=== PATIENT | male | born 1980 | race Caucasian/White ===

== ENCOUNTER 2023-09-01 22:52 | Observation (INO) | payer OTHER ==
--- NOTE | 2023-09-01 23:14 | ERPHSYRPT ---
- History of Present Illness Time Seen by Provider: 09/01/23 23:09 Historian: patient, family Exam Limitations: no limitations Physician History: pt had pneumonia 2 weeks ago and finished antibiotics and now has worse CP coughing up blood. and pain is with coughing. some N no V. Abd soft nontender without peritoneal signs or masses. ext without edema or swelling. is in ER as confirming independent source for HX. discussed risks/benefits with pt and for CBC, CMP, UA, CXR, Trop BNP, D dimer, Lactate, Lipase, EKG, and they wish to proceed, These are ordered. results discussed with pt and . Timing/Duration: today, worse Quality: sharpness, stabbing Location: central, back Chest Pain Radiation: back Severity of Pain-Max: moderate Severity of Pain-Current: moderate Associated Symptoms: nausea, shortness of breath, cough Prior Chest Pain/Cardiac Workup: recently seen/treated, recent hospitalization Nitro Today/Relief: 0.4 mg x 1, provided by ED Aspirin Treatment Today: 81 mg x 4, provided by ED Allergies/Adverse Reactions: No Known Drug Allergies Allergy (Verified 09/01/23 23:27) Home Medications: Metoprolol Succinate 50 mg [Toprol Xl 50 MG] 50 mg PO DAILY 09/01/23 [History] - Review of Systems Constitutional: No Fever, No Chills Eyes: No Symptoms Ears, Nose, & Throat: No Symptoms Respiratory: Cough, Dyspnea Cardiac: Chest Pain, No Edema, No Syncope Abdominal/Gastrointestinal: Nausea, No Abdominal Pain, No Vomiting, No Diarrhea Genitourinary Symptoms: No Dysuria Musculoskeletal: Back Pain, No Neck Pain Skin: No Rash Neurological: No Dizziness, No Focal Weakness, No Sensory Changes Psychological: No Symptoms Endocrine: No Symptoms Hematologic/Lymphatic: No Symptoms Immunological/Allergic: No Symptoms All Other Systems: Reviewed and Negative - Past Medical History Neurological History: No Pertinent History Cardiac History: No Pertinent History Respiratory History: No Pertinent History Endocrine Medical History: No Pertinent History Musculoskeletal History: No Pertinent History Other Medical History: PLATE AND 7 SCREWS IN THE R UE IN 2001. - Nursing Vital Signs Nursing Vital Signs: Initial Vital Signs Temperature 100.5 F 09/01/23 22:53 Pulse Rate 117 H 09/01/23 22:53 Respiratory Rate 20 09/01/23 22:53 Blood Pressure 128/89 09/01/23 22:53 O2 Sat by Pulse Oximetry 95 09/01/23 22:53 Pain Scale Pain Intensity 10 - Physical Exam General Appearance: no apparent distress, alert Eye Exam: PERRL/EOMI, eyes nml inspection Ears, Nose, Throat Exam: normal ENT inspection, moist mucous membranes Neck Exam: normal inspection, non-tender, supple, full range of motion Respiratory Exam: normal breath sounds, lungs clear, No respiratory distress Cardiovascular Exam: regular rate/rhythm, normal heart sounds Gastrointestinal/Abdomen Exam: soft, No tenderness, No mass Back Exam: normal inspection, No CVA tenderness, No vertebral tenderness Extremity Exam: normal inspection, normal range of motion Neurologic Exam: alert, oriented x 3, cooperative, normal mood/affect, sensation nml, No motor deficits Skin Exam: normal color, warm, dry SpO2 Interpretation: normal O2 Delivery: Room Air - Course Nursing assessment & vital signs reviewed: Yes EKG Interpreted by Me: Sinus Rhythm, Sinus Tach, NORMAL AXIS, NORMAL INTERVALS, NORMAL QRS, Non-specific ST Changes - Radiology Exams Chest X-ray Interpretation: Reviewed by me, Infiltrates, Pneumonia - CT Exams Chest CT Interpretation: Tele-radiologist Report, Other (bilateral PE and infarcts) Ordered Tests: Active Orders 24 hr Category Date Time Status Data Entry Coordinator STAT Care 09/01/23 23:15 Active EKG-ER Only STAT Care 09/01/23 23:14 Active IV Insertion STAT Care 09/01/23 23:14 Active Pulse Oximetry (ED) STAT Care 09/01/23 23:14 Active CHEST 1 VIEW (PORTABLE) Stat Exams 09/01/23 23:15 Taken CHEST WITH CONTRAST [CT] Stat Exams 09/02/23 00:51 Completed AMYLASE Stat Lab 09/01/23 23:29 Completed CBC W DIFF Stat Lab 09/01/23 23:29 Completed CMP Stat Lab 09/01/23 23:29 Completed D-DIMER QUANTITATIVE Stat Lab 09/01/23 23:29 Completed LIPASE Stat Lab 09/01/23 23:29 Completed Lactic Acid Stat Lab 09/01/23 23:40 Completed NT PRO BNPII Stat Lab 09/01/23 23:29 Completed TROPONIN Q4H Lab 09/01/23 23:29 Completed TROPONIN Q4H Lab 09/02/23 03:15 Ordered TROPONIN Q4H Lab 09/02/23 07:15 Ordered Medication Summary Generic Name Dose Route Start Last Admin Trade Name Scott PRN Reason Stop Dose Admin Sodium Chloride 1,000 mls @ 100 mls/hr 09/01/23 23:15 09/01/23 23:41 Sodium Chloride 0.9% 1000 Ml IV 10/01/23 23:14 100 mls/hr .Q10H RACHEL Administration Discontinued Medications Generic Name Dose Route Start Last Admin Trade Name Scott PRN Reason Stop Dose Admin Aspirin 324 mg 09/01/23 23:14 09/01/23 23:40 Aspirin 81 Mg Tab.Chew PO 09/01/23 23:15 324 mg STAT ONE Administration Aspirin Confirm 09/01/23 23:33 Aspirin 81 Mg Tab.Chew Administered 09/01/23 23:34 Dose 324 mg .ROUTE .STK-MED ONE Nitroglycerin 0.4 mg 09/01/23 23:14 09/01/23 23:39 Nitroglycerin 0.4 Mg (Ed) 0.4 Mg Tab.Subl SL 09/01/23 23:15 0.4 mg STAT ONE Administration Nitroglycerin Confirm 09/01/23 23:33 Nitroglycerin 0.4 Mg (Ed) 0.4 Mg Tab.Subl Administered 09/01/23 23:34 Dose 0.4 mg SL .STK-MED ONE Lab/Rad Data: Laboratory Result Diagrams 09/01/23 23:29 09/01/23 23:29 Laboratory Results 09/01/23 09/01/23 09/01/23 Range/Units 23:40 23:29 23:29 WBC (4.0-10.5) x10^3/uL RBC (4.1-5.6) x10^6/uL Hgb (12.5-18.0) g/dL Hct (42-50) % MCV (78-100) fL MCH (26-32) pg MCHC (32-36) g/dL RDW (11.5-14.0) % Plt Count (150-450) x10^3/uL MPV (7.5-11.0) fL Gran % (36.0-66.0) % Immature Gran % (Auto) (0.00-0.4) % Nucleat RBC Rel Count (0.00-0.1) % Eos # (Auto) (0-0.5) x10^3/uL Immature Gran # (Auto) (0.00-0.03) x10^3u/L Absolute Lymphs (auto) (1.0-4.6) x10^3/uL Absolute Monos (auto) (0.0-1.3) x10^3/uL Absolute Nucleated RBC (0.00-0.01) x10^3u/L Lymphocytes % (24.0-44.0) % Monocytes % (0.0-12.0) % Eosinophils % (0.00-5.0) % Basophils % (0.0-0.4) % Absolute Granulocytes (1.4-6.9) x10^3/uL Basophils # (0-0.4) x10^3/uL D-Dimer 1.70 H* (0.0-0.50) mg/L Sodium (135-145) mmol/L Potassium (3.5-5.1) mmol/L Chloride (98-107) mmol/L Carbon Dioxide (22-30) mmol/L Anion Gap (5-15) MEQ/L BUN (9-20) mg/dL Creatinine (0.66-1.25) mg/dL Estimated GFR ML/MIN Glucose (74-106) mg/dL Lactic Acid 1.3 (0.4-2.0) Calcium (8.4-10.2) mg/dL Total Bilirubin (0.2-1.3) mg/dL AST (17-59) U/L ALT (0-50) U/L Alkaline Phosphatase (38-126) U/L Troponin I < 0.012 (0.000-0.034) ng/mL NT-Pro-B Natriuret Pep 116 (<300) pg/mL Serum Total Protein (6.3-8.2) g/dL Albumin (3.5-5.0) g/dL Amylase (30-110) U/L Lipase (23-300) U/L 09/01/23 09/01/23 Range/Units 23:29 23:29 WBC 10.5 (4.0-10.5) x10^3/uL RBC 5.80 H (4.1-5.6) x10^6/uL Hgb 14.5 (12.5-18.0) g/dL Hct 47.4 (42-50) % MCV 81.7 (78-100) fL MCH 25.0 L (26-32) pg MCHC 30.6 L (32-36) g/dL RDW 21.0 H (11.5-14.0) % Plt Count 271 (150-450) x10^3/uL MPV 10.2 (7.5-11.0) fL Gran % 76.0 H (36.0-66.0) % Immature Gran % (Auto) 0.4 (0.00-0.4) % Nucleat RBC Rel Count 0.0 (0.00-0.1) % Eos # (Auto) 0.18 (0-0.5) x10^3/uL Immature Gran # (Auto) 0.04 H (0.00-0.03) x10^3u/L Absolute Lymphs (auto) 1.38 (1.0-4.6) x10^3/uL Absolute Monos (auto) 0.86 (0.0-1.3) x10^3/uL Absolute Nucleated RBC 0.00 (0.00-0.01) x10^3u/L Lymphocytes % 13.1 L (24.0-44.0) % Monocytes % 8.2 (0.0-12.0) % Eosinophils % 1.7 (0.00-5.0) % Basophils % 0.6 (0.0-0.4) % Absolute Granulocytes 8.02 H (1.4-6.9) x10^3/uL Basophils # 0.06 (0-0.4) x10^3/uL D-Dimer (0.0-0.50) mg/L Sodium 136 (135-145) mmol/L Potassium 4.2 (3.5-5.1) mmol/L Chloride 100 (98-107) mmol/L Carbon Dioxide 28 (22-30) mmol/L Anion Gap 12.9 (5-15) MEQ/L BUN 5 L (9-20) mg/dL Creatinine 0.53 L (0.66-1.25) mg/dL Estimated GFR 127.5 ML/MIN Glucose 94 (74-106) mg/dL Lactic Acid (0.4-2.0) Calcium 9.1 (8.4-10.2) mg/dL Total Bilirubin 1.00 (0.2-1.3) mg/dL AST 17 (17-59) U/L ALT 10 (0-50) U/L Alkaline Phosphatase 133 H (38-126) U/L Troponin I (0.000-0.034) ng/mL NT-Pro-B Natriuret Pep (<300) pg/mL Serum Total Protein 7.4 (6.3-8.2) g/dL Albumin 4.0 (3.5-5.0) g/dL Amylase 61 (30-110) U/L Lipase 47 (23-300) U/L - Progress Progress: improved, re-examined Air Movement: good Progress Note: 09/02/23 00:49 discussed risks/benefits of CT PE protocol with pt and and they wish to proceed - this is ordered. Results discussed with pt and . Discussed pain med with pt and and they decline for the moment. 09/02/23 02:19 discussed with family , pt and Dr. quinn hospitalist in consultation and all agree best for pt to come in and begin his AC for Tx PEs. Blood Culture(s) Obtained: No Antibiotics given: No Discussed with Dr.: Other (Dr. Lily Quinn) Will see patient in: hospital (observation) Counseled pt/family regarding: lab results, diagnosis, need for follow-up, rad results Medical Desision Making - Independent Historian Additional History obtained from: Spouse - Discussion of managment Care discussed with:: hospitalist Reviewed:: Test results, Need for additional workup Agreed on:: Treatment plan, need for follow-up, decision to admit - Diagnostic Testing Diagnostic test were ordered, analyzed, and reviewed by me: Yes Radiological Interpretation: Reviewed by me - Risk of complications The pt has a mod risk of morbidity or mortality based on: Need for prescription drug management The pt has a high risk of morbidity or mortality based on: Decision regarding hospitilization or escalation of hosp level of care - Departure Departure Disposition: Observation Clinical Impression: bilateral pulmonary embolisms and infarc Condition: Good Critical Care Time: No Referrals: JEANINE COOK, GLASS EDGER [Primary Care Provider] - Follow up/PCP as directed
[2023-09-01 23:32] LABS: Absolute Neutrophil Ct (ANC) 8.02 x10^3/uL (1.4-6.9); BASOPHIL % 0.6 % (0.0-0.4); Basophil (Absolute #) 0.06 x10^3/uL (0-0.4); Eosinophil % 1.7 % (0.00-5.0); Eosinophil (Absolute #) 0.18 x10^3/uL (0-0.5); Hematocrit 47.4 % (42-50); Hemoglobin 14.5 g/dL (12.5-18.0); IMMATURE GRAN # 0.04 x10^3u/L (0.00-0.03); IMMATURE GRAN % 0.4 % (0.00-0.4); Lymphocyte (Absolute #) 1.38 x10^3/uL (1.0-4.6); Lymphocytes % 13.1 % (24.0-44.0); Mean Cell Volume 81.7 fL (78-100); Mean Corpuscular Hgb Concent. 30.6 g/dL (32-36); Mean Platelet Volume 10.2 fL (7.5-11.0); Monocyte (Absolute #) 0.86 x10^3/uL (0.0-1.3); Monocytes % 8.2 % (0.0-12.0); Platelet Count 271 x10^3/uL (150-450); White Blood Count 10.5 x10^3/uL (4.0-10.5)
[2023-09-01] MEDS ORDERED: Nitrostat 0.4 MG (ED) SL ONE (23:33)
[2023-09-01] MEDS ORDERED: BABY ASPIRIN 81 MG CHEW ONE (23:33)
[2023-09-01] MEDS: Nitrostat 0.4 MG (ED) SL ONE (23:39)
[2023-09-01] MEDS: BABY ASPIRIN 81 MG CHEW PO ONE (23:40)
[2023-09-01] MEDS: Sodium Chloride 0.9% 1000 ML 1,000 ML IV SCH (23:41)
[2023-09-01 23:50] LABS: ANION GAP 12.9 MEQ/L (5-15); Calcium 9.1 mg/dL (8.4-10.2); Creatinine 1 0.53 mg/dL (0.66-1.25); EST GLOMERULAR FILTRATION RATE 127.5 ML/MIN; Potassium 4.2 mmol/L (3.5-5.1); Total Protein 7.4 g/dL (6.3-8.2)
[2023-09-02 00:02] LABS: NT PRO BNPII 116 pg/mL (<300); TROPONIN < 0.012 ng/mL (0.000-0.034)
--- NOTE | 2023-09-02 02:05 | XRAY ---
CLINICAL HISTORY: Elevated D dimer CP TECHNIQUE: Contiguous axial CT images of the chest were acquired in arterial phase following administration of 80 cc Isovue-370 intravenous contrast. Coronal and sagittal reconstructions were also obtained. COMPARISON: None. FINDINGS: Suboptimal study with simultaneous opacification of the pulmonary veins due to slightly delayed acquisition. There are large intraluminal filling defects appreciated in the bilateral lower lobe lobar and segmental pulmonary arterial branches. Bilateral lower lobe patchy peripheral consolidative changes with a roughly wedge-shaped configuration, likely represent bilateral pulmonary infarcts (right>left). Minimal bilateral pleural effusion is also present. Normal caliber thoracic aorta without any significant abnormality. No evidence of aortic root dilatation. No pneumothorax. No inter-lobular septal thickening. No bronchiectatic changes or honeycombing. Visualzied thyroid appears unremarkable. Few borderline enlarged mediastinal lymph nodes are likely reactive. No size significant supraclavicular or axillary lymphadenopathy. Trachea is central and patent. No endobronchial lesion is identified. Normal cardiac size. No pericardial effusion. Visualized sections through the upper abdomen do not show any gross visceral abnormality. Mild degenerative changes are seen in the spine. IMPRESSION: Acute pulmonary embolism in the bilateral lower lobe lobar and segmental pulmonary arterial branches, with bilateral pulmonary infarcts and minimal bilateral pleural effusion. [facility] ER was called at [phone] at 12:56 AM [employer]RB[employer]EWAL MANAGER, 09/02/2023 and Mono Goodman was informed regarding Critical Findings. Electronically Signed by: Chary Altamirano MD. (09/02/2023 02:01:07 EDT)
[2023-09-02 02:19] LABS: INFLUENZA A NEGATIVE (NEGATIVE); INFLUENZA B NEGATIVE (NEGATIVE); RESPIRATORY SYNCTIAL VIRUS NEGATIVE (NEGATIVE); SARS-CoV-2 Xpert Express NEGATIVE (NEGATIVE)
--- NOTE | 2023-09-02 03:48 | PCM.HP ---
History of Present Illness - Chief Complaint Chief Complaint: Acute PE History of Present Illness: is a 43 year old male with HTN and polycythemia presesnts with left sided chest pain and found to have acute pulmonary embolism in the bilateral lower lobe lobar and segmental pulmonary arterial branches, with bilateral pulmonary infarcts and minimal bilateral pleural effusion. Patient reports no prior blood clots. Last phlembotomy was about 2 months ago; and cause of polycy themia per patient was unknown. Denies any OTC medications, recent travel. Reports some blood tinged sputum with excessive coughing but reports no other bleeding. - Review of Systems Constitutional: No Fever, No Chills Eyes: No Symptoms Ears, Nose, & Throat: No Symptoms Respiratory: No Cough, No Short Of Breath Cardiac: No Chest Pain, No Edema, No Syncope Abdominal/Gastrointestinal: No Abdominal Pain, No Nausea, No Vomiting, No Diarrhea Genitourinary Symptoms: No Dysuria Musculoskeletal: No Back Pain, No Neck Pain Skin: No Rash Neurological: No Dizziness, No Focal Weakness, No Sensory Changes Psychological: No Symptoms Endocrine: No Symptoms Hematologic/Lymphatic: No Symptoms Immunological/Allergic: No Symptoms Medications & Allergies Home Medications: Home Medication List Metoprolol Succinate 50 mg [Toprol Xl 50 MG] 50 mg PO DAILY 09/01/23 [History Confirmed 09/01/23] Omeprazole 20 mg PO DAILY PRN PRN 09/02/23 [History Confirmed 09/02/23] Allergies/Adverse Reactions: Allergies Allergy/AdvReac Type Severity Reaction Status Date / Time No Known Drug Allergies Allergy Verified 09/01/23 23:27 - Past Medical History Neurological History: No Pertinent History Cardiac History: No Pertinent History Respiratory History: No Pertinent History Endocrine Medical History: No Pertinent History Musculoskelatal History: No Pertinent History Comment: PLATE AND 7 SCREWS IN THE R UE IN 2001. - Past Surgical History Past Surgical History: Yes Other Surgical History: lower back surgery - Social History Smoking Status: Current every day smoker How long have you smoked: 25 yrs Exposure to second hand smoke: No Alcohol: None Drug Use: none - Physical Exam Vital Signs: Vital Signs - 24 hr Temp Pulse Pulse Resp BP BP Pulse Ox 09/02/23 02:30 98 H 35 H 115/73 95 09/02/23 02:00 99 H 24 112/74 96 09/02/23 01:30 101 H 12 126/77 93 L 09/02/23 01:17 99 H 20 114/75 96 09/02/23 01:00 99 H 20 110/65 96 09/02/23 00:30 102 H 25 H 117/74 94 L 09/02/23 00:00 111 H 39 H 112/78 94 L 09/01/23 23:43 111 H 39 H 119/76 96 09/01/23 23:30 117 H 32 H 122/87 94 L 09/01/23 23:14 95 09/01/23 22:53 100.5 F 117 H 116 H 20 128/89 95 General Appearance: no apparent distress, alert Neurologic Exam: alert, oriented x 3, cooperative, normal mood/affect, nml cerebellar function, nml station & gait, sensation nml, No motor deficits Eye Exam: PERRL/EOMI, eyes nml inspection Ears, Nose, Throat Exam: normal ENT inspection, TMs normal, pharynx normal, moist mucous membranes Neck Exam: normal inspection, non-tender, supple, full range of motion Respiratory Exam: normal breath sounds, lungs clear, No respiratory distress Cardiovascular Exam: regular rate/rhythm, normal heart sounds, normal peripheral pulses Gastrointestinal/Abdomen Exam: soft, normal bowel sounds, No tenderness, No mass Back Exam: normal inspection, normal range of motion, No CVA tenderness, No vertebral tenderness Extremity Exam: normal inspection, normal range of motion, pelvis stable Skin Exam: normal color, warm, dry, No rash Lymphatic Exam: No adenopathy Results - Labs Lab/Micro Results: Lab Results-Last 24 Hours 09/01/23 09/01/23 09/01/23 Range/Units 23:29 23:29 23:29 WBC 10.5 (4.0-10.5) x10^3/uL RBC 5.80 H (4.1-5.6) x10^6/uL Hgb 14.5 (12.5-18.0) g/dL Hct 47.4 (42-50) % MCV 81.7 (78-100) fL MCH 25.0 L (26-32) pg MCHC 30.6 L (32-36) g/dL RDW 21.0 H (11.5-14.0) % Plt Count 271 (150-450) x10^3/uL MPV 10.2 (7.5-11.0) fL Gran % 76.0 H (36.0-66.0) % Immature Gran % (Auto) 0.4 (0.00-0.4) % Nucleat RBC Rel Count 0.0 (0.00-0.1) % Eos # (Auto) 0.18 (0-0.5) x10^3/uL Immature Gran # (Auto) 0.04 H (0.00-0.03) x10^3u/L Absolute Lymphs (auto) 1.38 (1.0-4.6) x10^3/uL Absolute Monos (auto) 0.86 (0.0-1.3) x10^3/uL Absolute Nucleated RBC 0.00 (0.00-0.01) x10^3u/L Lymphocytes % 13.1 L (24.0-44.0) % Monocytes % 8.2 (0.0-12.0) % Eosinophils % 1.7 (0.00-5.0) % Basophils % 0.6 (0.0-0.4) % Absolute Granulocytes 8.02 H (1.4-6.9) x10^3/uL Basophils # 0.06 (0-0.4) x10^3/uL D-Dimer 1.70 H* (0.0-0.50) mg/L Sodium 136 (135-145) mmol/L Potassium 4.2 (3.5-5.1) mmol/L Chloride 100 (98-107) mmol/L Carbon Dioxide 28 (22-30) mmol/L Anion Gap 12.9 (5-15) MEQ/L BUN 5 L (9-20) mg/dL Creatinine 0.53 L (0.66-1.25) mg/dL Estimated GFR 127.5 ML/MIN Glucose 94 (74-106) mg/dL Lactic Acid (0.4-2.0) Calcium 9.1 (8.4-10.2) mg/dL Total Bilirubin 1.00 (0.2-1.3) mg/dL AST 17 (17-59) U/L ALT 10 (0-50) U/L Alkaline Phosphatase 133 H (38-126) U/L Troponin I (0.000-0.034) ng/mL NT-Pro-B Natriuret Pep (<300) pg/mL Serum Total Protein 7.4 (6.3-8.2) g/dL Albumin 4.0 (3.5-5.0) g/dL Amylase 61 (30-110) U/L Lipase 47 (23-300) U/L Influenza Type A Ag (NEGATIVE) Influenza Type B Ag (NEGATIVE) RSV (PCR) (NEGATIVE) SARS-CoV-2 (PCR) (NEGATIVE) 09/01/23 09/01/23 09/02/23 Range/Units 23:29 23:40 01:37 WBC (4.0-10.5) x10^3/uL RBC (4.1-5.6) x10^6/uL Hgb (12.5-18.0) g/dL Hct (42-50) % MCV (78-100) fL MCH (26-32) pg MCHC (32-36) g/dL RDW (11.5-14.0) % Plt Count (150-450) x10^3/uL MPV (7.5-11.0) fL Gran % (36.0-66.0) % Immature Gran % (Auto) (0.00-0.4) % Nucleat RBC Rel Count (0.00-0.1) % Eos # (Auto) (0-0.5) x10^3/uL Immature Gran # (Auto) (0.00-0.03) x10^3u/L Absolute Lymphs (auto) (1.0-4.6) x10^3/uL Absolute Monos (auto) (0.0-1.3) x10^3/uL Absolute Nucleated RBC (0.00-0.01) x10^3u/L Lymphocytes % (24.0-44.0) % Monocytes % (0.0-12.0) % Eosinophils % (0.00-5.0) % Basophils % (0.0-0.4) % Absolute Granulocytes (1.4-6.9) x10^3/uL Basophils # (0-0.4) x10^3/uL D-Dimer (0.0-0.50) mg/L Sodium (135-145) mmol/L Potassium (3.5-5.1) mmol/L Chloride (98-107) mmol/L Carbon Dioxide (22-30) mmol/L Anion Gap (5-15) MEQ/L BUN (9-20) mg/dL Creatinine (0.66-1.25) mg/dL Estimated GFR ML/MIN Glucose (74-106) mg/dL Lactic Acid 1.3 (0.4-2.0) Calcium (8.4-10.2) mg/dL Total Bilirubin (0.2-1.3) mg/dL AST (17-59) U/L ALT (0-50) U/L Alkaline Phosphatase (38-126) U/L Troponin I < 0.012 (0.000-0.034) ng/mL NT-Pro-B Natriuret Pep 116 (<300) pg/mL Serum Total Protein (6.3-8.2) g/dL Albumin (3.5-5.0) g/dL Amylase (30-110) U/L Lipase (23-300) U/L Influenza Type A Ag NEGATIVE (NEGATIVE) Influenza Type B Ag NEGATIVE (NEGATIVE) RSV (PCR) NEGATIVE (NEGATIVE) SARS-CoV-2 (PCR) NEGATIVE (NEGATIVE) 09/02/23 Range/Units 03:11 WBC (4.0-10.5) x10^3/uL RBC (4.1-5.6) x10^6/uL Hgb (12.5-18.0) g/dL Hct (42-50) % MCV (78-100) fL MCH (26-32) pg MCHC (32-36) g/dL RDW (11.5-14.0) % Plt Count (150-450) x10^3/uL MPV (7.5-11.0) fL Gran % (36.0-66.0) % Immature Gran % (Auto) (0.00-0.4) % Nucleat RBC Rel Count (0.00-0.1) % Eos # (Auto) (0-0.5) x10^3/uL Immature Gran # (Auto) (0.00-0.03) x10^3u/L Absolute Lymphs (auto) (1.0-4.6) x10^3/uL Absolute Monos (auto) (0.0-1.3) x10^3/uL Absolute Nucleated RBC (0.00-0.01) x10^3u/L Lymphocytes % (24.0-44.0) % Monocytes % (0.0-12.0) % Eosinophils % (0.00-5.0) % Basophils % (0.0-0.4) % Absolute Granulocytes (1.4-6.9) x10^3/uL Basophils # (0-0.4) x10^3/uL D-Dimer (0.0-0.50) mg/L Sodium (135-145) mmol/L Potassium (3.5-5.1) mmol/L Chloride (98-107) mmol/L Carbon Dioxide (22-30) mmol/L Anion Gap (5-15) MEQ/L BUN (9-20) mg/dL Creatinine (0.66-1.25) mg/dL Estimated GFR ML/MIN Glucose (74-106) mg/dL Lactic Acid (0.4-2.0) Calcium (8.4-10.2) mg/dL Total Bilirubin (0.2-1.3) mg/dL AST (17-59) U/L ALT (0-50) U/L Alkaline Phosphatase (38-126) U/L Troponin I < 0.012 (0.000-0.034) ng/mL NT-Pro-B Natriuret Pep (<300) pg/mL Serum Total Protein (6.3-8.2) g/dL Albumin (3.5-5.0) g/dL Amylase (30-110) U/L Lipase (23-300) U/L Influenza Type A Ag (NEGATIVE) Influenza Type B Ag (NEGATIVE) RSV (PCR) (NEGATIVE) SARS-CoV-2 (PCR) (NEGATIVE) - Radiology Impressions Radiology Exams & Impressions: Radiology Procedures Category Date Time Status CHEST 1 VIEW (PORTABLE) Stat Exams 09/01/23 23:15 Taken CHEST WITH CONTRAST [CT] Stat Exams 09/02/23 00:51 Completed - Other Procedures and Tests Respiratory Therapy 09/02/23 02:29 Respiratory Therapy Consult ONCE Assessment/Plan (1) Acute pulmonary embolism Current Visit: Yes Status: Acute Assessment & Plan: 1. With a history of polycythemia, could be the culprit 2. Treat with Lovenox tonight and switch to PO tomorrow for anticipated discharge 3. Sees a geographic information systems analyst as an outpatient - informed patient to call the office for follow up post discharge Code(s): I26.99 - OTHER PULMONARY EMBOLISM WITHOUT ACUTE COR PULMONALE Telemedicine Encounter - Telemedicine Encounter Telemedicine Encounter: The entirety of this encounter was performed via Telemedicine"
[2023-09-02] MEDS: ENOXAPARIN SODIUM SQ SCH (03:59)
[2023-09-02] MEDS: TYLENOL 325 MG PO PRN (03:59)
[2023-09-02 05:55] LABS: Absolute Neutrophil Ct (ANC) 7.24 x10^3/uL (1.4-6.9); BASOPHIL % 0.6 % (0.0-0.4); Basophil (Absolute #) 0.06 x10^3/uL (0-0.4); Eosinophil % 1.2 % (0.00-5.0); Eosinophil (Absolute #) 0.13 x10^3/uL (0-0.5); Hematocrit 45.7 % (42-50); Hemoglobin 13.7 g/dL (12.5-18.0); IMMATURE GRAN # 0.03 x10^3u/L (0.00-0.03); IMMATURE GRAN % 0.3 % (0.00-0.4); Lymphocyte (Absolute #) 2.19 x10^3/uL (1.0-4.6); Lymphocytes % 20.9 % (24.0-44.0); Mean Cell Volume 82.8 fL (78-100); Mean Corpuscular Hemoglobin 24.8 pg (26-32); Mean Platelet Volume 10.2 fL (7.5-11.0); Monocyte (Absolute #) 0.85 x10^3/uL (0.0-1.3); Monocytes % 8.1 % (0.0-12.0); Neutrophil % 68.9 % (36.0-66.0); Platelet Count 245 x10^3/uL (150-450); Red Blood Count 5.52 x10^6/uL (4.1-5.6); Red Cell Distribution Width 21.1 % (11.5-14.0); White Blood Count 10.5 x10^3/uL (4.0-10.5)
[2023-09-02 06:02] LABS: ALBUMIN 3.5 g/dL (3.5-5.0); ANION GAP 10.8 MEQ/L (5-15); Calcium 8.7 mg/dL (8.4-10.2); Creatinine 1 0.56 mg/dL (0.66-1.25); EST GLOMERULAR FILTRATION RATE 125.4 ML/MIN
--- NOTE | 2023-09-02 08:46 | XRAY ---
Indication: Pneumonia. Chest pain. Comparison: June 21, 2008 Portable chest demonstrates new mild diffuse bibasilar patchy airspace disease with tiny left effusion. Remaining heart and bony thorax are unremarkable.
[2023-09-02] MEDS: Toprol Xl 50 MG PO SCH (09:21)
[2023-09-02] MEDS: NORCO 5/325 MG PO PRN (09:21)
--- NOTE | 2023-09-02 15:39 | ECHO ---
Transthoracic echocardiographic examination and color Doppler was done on 09/02/2023. INDICATION: Shortness of breath. IMPRESSION: 1) NO REGIONAL WALL MOTION ABNORMALITY. ESTIMATED GLOBAL LEFT VENTRICULAR EJECTION FRACTION BETWEEN 55 TO 60%. 2) TRACE TRICUSPID REGURGITATION, RIGHT VENTRICULAR SYSTOLIC PRESSURE OF 27 MM OF MERCURY. The left ventricle is visualized and demonstrated adequate motion of all the segments. Estimated global left ventricular ejection fraction between 55 to 60%. The left ventricular thickness is normal. The mitral valve is seen and this opens adequately. No significant mitral regurgitation is seen. Left atrium is normal. The aortic valve opens adequately. There is no significant gradient across the left ventricular outflow tract. The right side chambers are within normal with normal right ventricular contractility. There is trace tricuspid regurgitation. The right ventricular systolic pressure of 27 mm of Mercury.
[2023-09-02] MEDS ORDERED: ENOXAPARIN SODIUM SQ SCH (18:00)
[2023-09-02] MEDS: Nicoderm CQ 21 MG TOP SCH (19:33)
[2023-09-02] MEDS: ELIQUIS 2.5 MG TABLET PO SCH (21:38)
[2023-09-03 04:57] LABS: Absolute Neutrophil Ct (ANC) 8.99 x10^3/uL (1.4-6.9); BASOPHIL % 0.3 % (0.0-0.4); Basophil (Absolute #) 0.04 x10^3/uL (0-0.4); Eosinophil % 1.1 % (0.00-5.0); Eosinophil (Absolute #) 0.13 x10^3/uL (0-0.5); Hematocrit 43.7 % (42-50); Hemoglobin 12.9 g/dL (12.5-18.0); IMMATURE GRAN # 0.05 x10^3u/L (0.00-0.03); IMMATURE GRAN % 0.4 % (0.00-0.4); Lymphocyte (Absolute #) 1.86 x10^3/uL (1.0-4.6); Lymphocytes % 15.4 % (24.0-44.0); Mean Cell Volume 82.9 fL (78-100); Mean Corpuscular Hemoglobin 24.5 pg (26-32); Mean Corpuscular Hgb Concent. 29.5 g/dL (32-36); Mean Platelet Volume 9.7 fL (7.5-11.0); Monocyte (Absolute #) 0.99 x10^3/uL (0.0-1.3); Monocytes % 8.2 % (0.0-12.0); Neutrophil % 74.6 % (36.0-66.0); Platelet Count 239 x10^3/uL (150-450); Red Blood Count 5.27 x10^6/uL (4.1-5.6); Red Cell Distribution Width 21.2 % (11.5-14.0); White Blood Count 12.1 x10^3/uL (4.0-10.5)
[2023-09-03 05:22] LABS: ANION GAP 9.7 MEQ/L (5-15); Calcium 8.3 mg/dL (8.4-10.2); Creatinine 1 0.56 mg/dL (0.66-1.25); EST GLOMERULAR FILTRATION RATE 125.4 ML/MIN; Potassium 3.8 mmol/L (3.5-5.1); Total Protein 6.3 g/dL (6.3-8.2)
--- NOTE | 2023-09-03 05:37 | PCM.DS ---
Discharge Summary Date of Admission: 09/02/23 02:25 Date of Discharge: 09/03/23 Admitting Physician: SHERINE HATCH MD Primary Care Provider: JEANINE COOK <JUSTIN KAY - Last Filed: 09/03/23 11:39> Date of Admission: 09/02/23 02:25 Admitting Physician: SHERINE HATCH MD Primary Care Provider: JEANINE COOK <TIKA SUMMERS - Last Filed: 09/03/23 22:30> Allergies <JUSTIN KAY - Last Filed: 09/03/23 11:39> <TIKA SUMMERS - Last Filed: 09/03/23 22:30> Allergies No Known Drug Allergies Allergy (Verified 09/02/23 03:48) Hospital Summary - Hospital Course Hospital Course: Rosie Serrano is a 43 year old male with a pmhx of HTN, polycythemia (with therapeutic phlebotomies), and pneumonia 2 weeks ago (antibiotic regimen completed), presented to ED3 with left sided chest pain and hemoptysis. Ddimer elevated at 1.70. CT imaging of the Chest with PE protocol demonstrates Acute pulmonary embolism in the bilateral lower lobe lobar and segmental pulmonary arterial branches, with bilateral pulmonary infarcts and minimal bilateral pleural effusion. Patient admitted with PE, therapeutic Lovenox initiated and later converted to Eliquis 10mg bid dosing x 1 week, then 5mg bid dosing thereafter. Spoke with Dr. Thomas, patient's PCV is secondary to smoking, Jak2 negative. He has requested CT abd/pelvis, patient states that he has had recent MRI of the abdomen at [facility] 2 weeks ago which noted a renal cyst as well as a pancreatic cyst. Patient has an appointment with Dr. Baudilio Russo for further evaluation. Discharge Note New Diagnosis: PE New Medications: Eliquis Follow Up: Hematology (sees Dr. Thomas)/PCP Latest Assessment & Plan (1) Acute pulmonary embolism Current Visit: Yes Status: Acute Assessment & Plan: 1. With a history of polycythemia, could be the culprit 2. Treat with Lovenox tonight and switch to PO tomorrow for anticipated discharge 3. 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 Thomas with therapeutic phlebotomies every 3 months or so -FCO 2 negative -seconday to smoking (3) HTN -Stable, home meds continued (4) smoker -Advised cessation, patient declines at this time. I spent 35 minutes [id number] with the patient on the day of discharge performing discharge exam, discussing hospital stay and discharge instructions with patient and caregivers, preparation of discharge records, prescriptions & referral forms and addressing any questions/concerns the patient had as doc umented above. - Vitals & Intake/Output Vital Signs: Vital Signs Temperature 97.3 F 09/03/23 04:00 Pulse Rate 92 H 09/03/23 04:00 Respiratory Rate 16 09/03/23 04:00 Blood Pressure 99/55 09/03/23 04:00 O2 Sat by Pulse Oximetry 99 09/03/23 04:00 Intake & Output: Intake & Output 08/31/23 09/01/23 09/02/23 09/03/23 11:59 11:59 11:59 11:59 Intake Total 120 1702 Balance 120 1702 Weight 82.7 kg - Lab Result Diagrams: 09/03/23 04:28 09/03/23 04:28 Lab Results-Last 24 Hrs: Lab Results-Last 24 Hours 09/02/23 09/02/23 09/03/23 Range/Units 03:11 03:11 04:28 WBC 10.5 12.1 H (4.0-10.5) x10^3/uL RBC 5.52 5.27 (4.1-5.6) x10^6/uL Hgb 13.7 12.9 (12.5-18.0) g/dL Hct 45.7 43.7 (42-50) % MCV 82.8 82.9 (78-100) fL MCH 24.8 L 24.5 L (26-32) pg MCHC 30.0 L 29.5 L (32-36) g/dL RDW 21.1 H 21.2 H (11.5-14.0) % Plt Count 245 239 (150-450) x10^3/uL MPV 10.2 9.7 (7.5-11.0) fL Gran % 68.9 H 74.6 H (36.0-66.0) % Immature Gran % (Auto) 0.3 0.4 (0.00-0.4) % Nucleat RBC Rel Count 0.0 0.0 (0.00-0.1) % Eos # (Auto) 0.13 0.13 (0-0.5) x10^3/uL Immature Gran # (Auto) 0.03 0.05 H (0.00-0.03) x10^3u/L Absolute Lymphs (auto) 2.19 1.86 (1.0-4.6) x10^3/uL Absolute Monos (auto) 0.85 0.99 (0.0-1.3) x10^3/uL Absolute Nucleated RBC 0.00 0.00 (0.00-0.01) x10^3u/L Lymphocytes % 20.9 L 15.4 L (24.0-44.0) % Monocytes % 8.1 8.2 (0.0-12.0) % Eosinophils % 1.2 1.1 (0.00-5.0) % Basophils % 0.6 0.3 (0.0-0.4) % Absolute Granulocytes 7.24 H 8.99 H (1.4-6.9) x10^3/uL Basophils # 0.06 0.04 (0-0.4) x10^3/uL Sodium 135 (135-145) mmol/L Potassium 4.0 (3.5-5.1) mmol/L Chloride 102 (98-107) mmol/L Carbon Dioxide 27 (22-30) mmol/L Anion Gap 10.8 (5-15) MEQ/L BUN 6 L (9-20) mg/dL Creatinine 0.56 L (0.66-1.25) mg/dL Estimated GFR 125.4 ML/MIN Glucose 127 H (74-106) mg/dL Calcium 8.7 (8.4-10.2) mg/dL Total Bilirubin 1.00 (0.2-1.3) mg/dL AST 17 (17-59) U/L ALT 11 (0-50) U/L Alkaline Phosphatase 113 (38-126) U/L Serum Total Protein 7.0 (6.3-8.2) g/dL Albumin 3.5 (3.5-5.0) g/dL 09/03/23 Range/Units 04:28 WBC (4.0-10.5) x10^3/uL RBC (4.1-5.6) x10^6/uL Hgb (12.5-18.0) g/dL Hct (42-50) % MCV (78-100) fL MCH (26-32) pg MCHC (32-36) g/dL RDW (11.5-14.0) % Plt Count (150-450) x10^3/uL MPV (7.5-11.0) fL Gran % (36.0-66.0) % Immature Gran % (Auto) (0.00-0.4) % Nucleat RBC Rel Count (0.00-0.1) % Eos # (Auto) (0-0.5) x10^3/uL Immature Gran # (Auto) (0.00-0.03) x10^3u/L Absolute Lymphs (auto) (1.0-4.6) x10^3/uL Absolute Monos (auto) (0.0-1.3) x10^3/uL Absolute Nucleated RBC (0.00-0.01) x10^3u/L Lymphocytes % (24.0-44.0) % Monocytes % (0.0-12.0) % Eosinophils % (0.00-5.0) % Basophils % (0.0-0.4) % Absolute Granulocytes (1.4-6.9) x10^3/uL Basophils # (0-0.4) x10^3/uL Sodium 135 (135-145) mmol/L Potassium 3.8 (3.5-5.1) mmol/L Chloride 101 (98-107) mmol/L Carbon Dioxide 28 (22-30) mmol/L Anion Gap 9.7 (5-15) MEQ/L BUN 7 L (9-20) mg/dL Creatinine 0.56 L (0.66-1.25) mg/dL Estimated GFR 125.4 ML/MIN Glucose 91 (74-106) mg/dL Calcium 8.3 L (8.4-10.2) mg/dL Total Bilirubin 1.00 (0.2-1.3) mg/dL AST 14 L (17-59) U/L ALT 7 (0-50) U/L Alkaline Phosphatase 102 (38-126) U/L Serum Total Protein 6.3 (6.3-8.2) g/dL Albumin 3.0 L (3.5-5.0) g/dL - Radiology Exams Ordered Rad Exams-Entire Visit: Radiology Procedures Category Date Time Status CHEST 1 VIEW (PORTABLE) Stat Exams 09/01/23 23:15 Completed CHEST WITH CONTRAST [CT] Stat Exams 09/02/23 00:51 Completed ECHO W/2D AND DOPPLER [US] Urgent Exams 09/02/23 13:25 Completed - Procedures and Test Procedures and Tests throughout Hospitalization: Therapy Orders & Screens 09/02/23 02:29 Respiratory Therapy Consult ONCE Comment: Reason For Exam: 09/02/23 03:48 Smoking Cessation Education ONCE Comment: Diagnosis: bilat PE Smoking Status: Current every day smoker How long have you smoked: 25 Have you smoked in the past 12 months: Yes Approximately how many cigarettes per day: 20 Do you dip or chew tobacco: No 09/02/23 08:10 Oxygen Nasal Cannula 2 lpm Comment: Diagnosis: Acute PE <JUSTIN KAY - Last Filed: 09/03/23 11:39> - Vitals & Intake/Output Vital Signs: Vital Signs Temperature 98.2 F 09/03/23 11:38 Pulse Rate 100 H 09/03/23 11:38 Respiratory Rate 26 H 09/03/23 11:38 Blood Pressure 110/65 09/03/23 11:38 O2 Sat by Pulse Oximetry 98 09/03/23 11:38 Intake & Output: Intake & Output 09/01/23 09/02/23 09/03/23 09/04/23 11:59 11:59 11:59 11:59 Intake Total 120 2242 Balance 120 2242 Weight 82.7 kg - Lab Result Diagrams: 09/03/23 04:28 09/03/23 04:28 Lab Results-Last 24 Hrs: Lab Results-Last 24 Hours 09/03/23 09/03/23 Range/Units 04:28 04:28 WBC 12.1 H (4.0-10.5) x10^3/uL RBC 5.27 (4.1-5.6) x10^6/uL Hgb 12.9 (12.5-18.0) g/dL Hct 43.7 (42-50) % MCV 82.9 (78-100) fL MCH 24.5 L (26-32) pg MCHC 29.5 L (32-36) g/dL RDW 21.2 H (11.5-14.0) % Plt Count 239 (150-450) x10^3/uL MPV 9.7 (7.5-11.0) fL Gran % 74.6 H (36.0-66.0) % Immature Gran % (Auto) 0.4 (0.00-0.4) % Nucleat RBC Rel Count 0.0 (0.00-0.1) % Eos # (Auto) 0.13 (0-0.5) x10^3/uL Immature Gran # (Auto) 0.05 H (0.00-0.03) x10^3u/L Absolute Lymphs (auto) 1.86 (1.0-4.6) x10^3/uL Absolute Monos (auto) 0.99 (0.0-1.3) x10^3/uL Absolute Nucleated RBC 0.00 (0.00-0.01) x10^3u/L Lymphocytes % 15.4 L (24.0-44.0) % Monocytes % 8.2 (0.0-12.0) % Eosinophils % 1.1 (0.00-5.0) % Basophils % 0.3 (0.0-0.4) % Absolute Granulocytes 8.99 H (1.4-6.9) x10^3/uL Basophils # 0.04 (0-0.4) x10^3/uL Sodium 135 (135-145) mmol/L Potassium 3.8 (3.5-5.1) mmol/L Chloride 101 (98-107) mmol/L Carbon Dioxide 28 (22-30) mmol/L Anion Gap 9.7 (5-15) MEQ/L BUN 7 L (9-20) mg/dL Creatinine 0.56 L (0.66-1.25) mg/dL Estimated GFR 125.4 ML/MIN Glucose 91 (74-106) mg/dL Calcium 8.3 L (8.4-10.2) mg/dL Total Bilirubin 1.00 (0.2-1.3) mg/dL AST 14 L (17-59) U/L ALT 7 (0-50) U/L Alkaline Phosphatase 102 (38-126) U/L Serum Total Protein 6.3 (6.3-8.2) g/dL Albumin 3.0 L (3.5-5.0) g/dL - Radiology Exams Ordered Rad Exams-Entire Visit: Radiology Procedures Category Date Time Status CHEST 1 VIEW (PORTABLE) Stat Exams 09/01/23 23:15 Completed CHEST WITH CONTRAST [CT] Stat Exams 09/02/23 00:51 Completed ECHO W/2D AND DOPPLER [US] Urgent Exams 09/02/23 13:25 Completed - Procedures and Test Procedures and Tests throughout Hospitalization: Therapy Orders & Screens 09/02/23 02:29 Respiratory Therapy Consult ONCE Comment: Reason For Exam: 09/02/23 03:48 Smoking Cessation Education ONCE Comment: Diagnosis: bilat PE Smoking Status: Current every day smoker How long have you smoked: 25 Have you smoked in the past 12 months: Yes Approximately how many cigarettes per day: 20 Do you dip or chew tobacco: No 09/02/23 08:10 Oxygen Nasal Cannula 2 lpm Comment: Diagnosis: Acute PE <TIKA SUMMERS - Last Filed: 09/03/23 22:30> Discharge Exam General Appearance: no apparent distress Neurologic Exam: alert, oriented x 3, cooperative Eye Exam: PERRL Ears, Nose, Throat Exam: normal ENT inspection Neck Exam: normal inspection Respiratory Exam: diminished breath sounds Cardiovascular Exam: regular rate/rhythm, normal heart sounds Gastrointestinal/Abdomen Exam: soft, normal bowel sounds Male Genitalia Exam: deferred Rectal Exam: deferred Back Exam: normal inspection Extremity Exam: normal inspection Skin Exam: normal color <JUSTIN KAY - Last Filed: 09/03/23 11:39> Final Diagnosis/Problem List - Final Discharge Diagnosis/Problem (1) Polycythemia Status: Acute Code(s): D75.1 - SECONDARY POLYCYTHEMIA (2) Hypertension Status: Chronic Code(s): I10 - ESSENTIAL (PRIMARY) HYPERTENSION (3) Acute pulmonary embolism Status: Chronic Code(s): I26.99 - OTHER PULMONARY EMBOLISM WITHOUT ACUTE COR PULMONALE <JUSTIN KAY - Last Filed: 09/03/23 11:39> <JUSTIN KAY - Last Filed: 09/03/23 11:39> <TIKA SUMMERS - Last Filed: 09/03/23 22:30> - Discharge Disposition: Home, Self-Care Condition: Stable Prescriptions: New Apixaban [Eliquis 2.5 mg Tablet] 10 mg PO BID tablet Continue Metoprolol Succinate 50 mg [Toprol Xl 50 MG] 50 mg PO DAILY Omeprazole 20 mg PO DAILY PRN PRN PRN Reason: Indigestion Instructions: Pulmonary Embolism (Blood Clot in the Lungs) (DC), Going Home on Blood Thinners Follow up with: ADAMS THOMAS [COURTESY STAFF] - 09/23/23 11:00 am JEANINE COOK NP [Primary Care Provider] - 09/09/23 10:00 am Forms: Work/School Release Form ISABELLA Encounter - ISABELLA Encounter Attestation ISABELLA Encounter Attestation: "ROSIE Fairbanks andhavediscussed pertinent aspects of their care with Justin Bishop agree with the history, physical exam (any modifications based on my personal exam will be noted below), assessment, and plan as outlined in original note. Please see immediately below for my summary of findings and additional assessment and plan along with any meaningful corrections/explanations to the Subjective/Objective portions of the ISABELLA note will be noted." My portion of the encounter took place via telemedicine. <TIKA SUMMERS - Last Filed: 09/03/23 22:30>
[2023-09-03 07:17] VITALS: PULSE 100; RESP 26
[2023-09-03 11:38] VITALS: BP 110/65; TEMP 98.2; O2SAT 98
== END 2023-09-03 12:19 | disposition home or self-care (01) ==
LOC: ED 22:52 → MED SURG 09-02 02:25
PROVIDERS: ADMIT Student in an Organized Health Care Education/Training Program; ATTEND Student in an Organized Health Care Education/Training Program
DX: I26.99 Other pulmonary embolism without acute cor pulmonale (principal); D75.1 Secondary polycythemia; I10 Essential (primary) hypertension; F17.200 Nicotine dependence, unspecified, uncomplicated; R07.9 Chest pain, unspecified; Z79.899 Other long term (current) drug therapy; Z20.828 Contact with and (suspected) exposure to other viral communicable diseases
CPT/HCPCS: 0241U; 36000; 36415; 71045; 71260; 80053; 82150; 83605; 83690; 83880; 84484; 85025; 85379; 93005; 93041; 93306; 94760; 94762; 99285; Q3014; J1650; A9270-GY